=== PATIENT | female | born 1935 | race Caucasian/White ===

== ENCOUNTER 2016-08-18 21:08 | Emergency (ER) | payer OTHER, BC ==
[~2016-08-18] VITALS: Ht 167.6 cm; Wt 78.0 kg
[~2016-08-18 21:08] MED LIST: HUMIRA40 MG/0.1 SUBQ; IRON325 PO; NORCO 5-325 TA1 EACH PO; PAXIL40 MG PO; PEPTO-BISMOL1 TAB PO; PREDNISONE 1 MG1 M1 PO; PREDNISONE 5 MG5 M1; PRILOSEC 20 MG20 MG PO; VITAMIN B-12500 MCG PO; VITAMIN D1000 UNI1 PO
[2016-08-18] MEDS ORDERED: B12INJ IM (22:18)
[2016-08-18] MEDS ORDERED: COZAAR 25 MG TA25 MG (22:21)
[2016-08-18 22:36] LABS: ABSOLUTE NEUTROPHILS 7.2 thou/uL (1.4-8.2); BASOPHILS 0.2 % (0.0-2.0); EOSINOPHILS 0.5 % (0.0-3.0); HEMATOCRIT 37.3 % (37.0-47.0); HEMOGLOBIN 12.6 gm/dL (12.0-15.0); LYMPHOCYTES 22.8 % (24.0-44.0); MCH 30.8 pg (26.0-34.0); MCHC 33.9 g/dL (28.0-37.0); MCV 90.7 fL (80.0-100.0); MONOCYTES 9.5 % (1.0-8.0); PLATELET COUNT 377 thou/uL (150-400); RBC 4.11 mil/uL (4.20-5.00); RDW 14.3 % (10.5-14.5); WBC 10.8 thou/uL (4.0-11.0)
[2016-08-18 22:36] LABS: URINE BILIRUBIN NEGATIVE (Negative); URINE BLOOD TRACE (Negative); URINE COLOR YELLOW; URINE GLUCOSE-RANDOM* NEGATIVE (Negative); URINE KETONES NEGATIVE (Negative); URINE LEUKOCYTES-REFLEX TRACE (Negative); URINE PROTEIN (DIPSTICK) NEGATIVE (Negative); URINE SPECIFIC GRAVITY 1.015 (1.003-1.035); URINE UROBILINOGEN 0.2 E.U./dl (0.2-1.0)
[2016-08-18 22:40] LABS: MANUAL DIFF NO
[2016-08-18 22:56] LABS: CALCIUM 9.1 mg/dL (8.5-10.1); POTASSIUM 4.4 mmol/L (3.5-5.1)
[2016-08-18 23:00] LABS: ALBUMIN 3.3 g/dL (3.4-5.0); TOTAL BILIRUBIN 0.4 mg/dL (<0.1-1.0); TOTAL PROTEIN 8.2 g/dL (6.4-8.2)
== END 2016-08-19 00:15 | disposition home or self-care (01) ==
LOC: ER 21:08
PROVIDERS: Physician Assistant
DX: K50.90 Crohn's disease, unspecified, without complications (principal); G47.30 Sleep apnea, unspecified; Z90.710 Acquired absence of both cervix and uterus; Z88.0 Allergy status to penicillin; Z87.891 Personal history of nicotine dependence